=== PATIENT | female | born 1940 | race Caucasian/White ===

== ENCOUNTER 2018-09-10 08:52 | Emergency (ER) | payer MEDICARE ==
--- NOTE | 2018-09-10 09:27 | RAD ---
XR Foot Rt 3 View STANDARD History: [Injury. Fall.] Comparison: None. 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 Old injury to the lateral head of the flexor hallucis brevis that does not change. There is very nonspecific fracture of the third metatarsal base although only seen on the AP radiogra ph. Remainder the foot appears unremarkable. Mild soft tissue swelling. Impression: Concern for nondisplaced fracture of the third metatarsal base. Recommend correlation wit h focal tenderness.
[2018-09-10] MEDS ORDERED: Bacitracin Zinc 1 Packet ONE (09:36)
== END 2018-09-10 09:49 | disposition home or self-care (01) ==
LOC: SCSER 08:52
DX: S93.601A Unspecified sprain of right foot, initial encounter (principal); X50.1XXA Overexertion from prolonged static or awkward postures, initial encounter

== ENCOUNTER 2019-01-19 09:21 | Outpatient (CLI) | payer MEDICARE ==
--- NOTE | 2019-01-19 11:08 | CT ---
CT CERVICAL SPINE: INDICATIONS: Cervical radiculopathy. TECHNIQUE: Axial tomograms obtained with multiplanar reconstructions. FINDINGS: The cervical vertebrae maintain height. Degenerative changes are seen throughout the cervical spine. Loss of disk space is most pronounced at the C4-C5, C5-C6 and C6-C7 levels. Anterolisthesis at C3-C4 measures approximately 3 mm. Posterior spondylosis and anterior spurring are seen at all levels. At C3-C4, mild disk bulge and spondylosis efface the anterior subarachnoid space. Mild left foraminal encroachment due to hypertrophic change. At C4-C5, posterior spondylosis effaces the anterior subarachnoid space. No significant cord impingem ent. Left foraminal narrowing due to facet and uncinate hypertrophy. At C5-C6, posterior spondylosis abuts the anterior cord. Bilateral foraminal narrowing due to facet a nd uncinate hypertrophy. At C6-C7, there is slight anterolisthesis measured at 3 mm. Posterior spondylosis is most pronounced centrally, abutting the anterior cord. No significant foraminal stenosis. IMPRESSION: 1. Degenerative changes of the cervical spine as described above. 2. Loss of disk space is prominent below C4 as noted above. 3. Posterior spondylosis seen as described above. 4. Incidentally noted is a mildly enlarged lobular thyroid with evidence of small internal nodules. C onsider dedicated thyroid ultrasound. POS: [facility]
--- NOTE | 2019-01-19 11:15 | RAD ---
3 VIEWS CERVICAL SPINE: Date: 01/19/19 HISTORY: Cervical radiculopathy, pain. FINDINGS: Multilevel disc space narrowing and degenerative end plate change present at C4-5, C5-6, and C6-7. Th ere is mild anterior osteophyte formation at C4-5, C5-6, and C6-7. On the neutral lateral exam, there is mild anterolisthesis at the C7-T1 level measuring approximately 2.0 mm. Upon flexion, anterolisthesis is noted at C3-4 measuring approximately 4.0 mm, and at C7-T1 measuring approximately 3.0 mm. There is no anterolisthesis or retrolisthesis seen on the extension v iews. IMPRESSION: Multilevel mid cervical spine degenerative change as detailed above. POS: [facility]
== END 2019-01-19 09:22 | disposition home or self-care (01) ==
LOC: SCSCT 09:21
PROVIDERS: ATTEND Nurse Practitioner Family
DX: M47.22 Other spondylosis with radiculopathy, cervical region (principal); E04.2 Nontoxic multinodular goiter
CPT/HCPCS: 72040; 72125

== ENCOUNTER 2020-07-19 12:04 | Inpatient (IN) | payer MEDICARE ==
[2020-07-19] MEDS ORDERED: Ondansetron ODT 4 MG TAB ONE (12:40)
[2020-07-19] MEDS ORDERED: Boostrix 0.5 ML (Tdap) VIAL ONE (12:47)
[2020-07-19] MEDS ORDERED: Lidocaine 1% PF 5 ML VIAL ONE (13:07)
[2020-07-19 14:40] LABS: #Basophils 0.1 thou/uL (0.0-0.2); #Eosinphils 0.5 thou/uL (0.0-0.7); #Lymphocytes 1.6 thou/uL (1.20-3.40); #Monocytes 0.8 thou/uL (0.11-0.59); #Neutrophils 6.3 thou/uL (1.40-6.50); %Eosinophils 5.8 % (0.0-10.0); %Lymphocytes 17.1 % (21.0-51.0); %Monocytes 8.9 % (0.0-10.0); %Neutrophils 67.3 % (42.0-75.0); Mean Corpuscular HGB CONC 32.6 g/dL (32.0-36.0); Mean Corpuscular Volume 91.9 fL (78.0-98.0); Mean Platelet Volume 10.4 fL (7.4-10.4); Platelet Count 149 thou/uL (130-400); RBC Distribution Width 13.1 % (11.5-14.5); Red Blood Cell (RBC) Count 4.33 mill/uL (4.20-5.40); White Blood Cell (WBC) Count 9.4 thou/uL (4.8-10.8)
[2020-07-19 15:01] LABS: ALT (SGPT) 11 U/L (8-55); AST (SGOT) 21 U/L (5-34); Albumin 3.8 g/dL (3.4-4.8); Alkaline Phosphatase 104 U/L (40-110); Anion Gap 15 mmol/L (10-20); BUN (Urea Nitrogen) 20 mg/dL (9.8-20.1); Bilirubin, Total 0.5 mg/dL (0.2-1.2); Calc. Creatinine Clearance 0 mL/min (70-130); Calcium 9.7 mg/dL (7.8-10.44); Carbon Dioxide 26 mmol/L (23-31); Chloride 94 mmol/L (98-107); Globulin 2.7 g/dL (2.4-3.5); Glucose 104 mg/dL (83-110); Potassium 5.1 mmol/L (3.5-5.1); Protein, Total 6.5 g/dL (5.8-8.1); Sodium 130 mmol/L (136-145)
[2020-07-19 17:10] LABS: Troponin I Less than 0.010 ng/mL (< 0.028)
[2020-07-19] MEDS ORDERED: Cyclobenzaprine 10 MG TAB PO PRN (18:09)
[2020-07-19] MEDS ORDERED: Ondansetron PF 4 MG/2 ML Vial IVP PRN (18:19)
[2020-07-19] MEDS ORDERED: Acetaminophen 325 MG TAB ONE (19:31)
[2020-07-19] MEDS: Sodium Chloride 0.9% 1,000 ML IV SCH (20:27)
[2020-07-19] MEDS: Gabapentin 300 MG CAP PO SCH (20:27)
[2020-07-19 20:32] LABS: Troponin I Less than 0.010 ng/mL (< 0.028)
[2020-07-19 22:29] VITALS: BMI 25.5
[2020-07-20] MEDS: traMADol HCl 50 MG TAB PO PRN ×2 (00:38→12:22)
[2020-07-20] MEDS: tiZANidine HCl 4 MG TAB PO PRN ×2 (00:38→20:01)
[2020-07-20 04:43] LABS: #Basophils 0.1 thou/uL (0.0-0.2); #Eosinphils 0.6 thou/uL (0.0-0.7); #Lymphocytes 1.6 thou/uL (1.20-3.40); #Monocytes 0.8 thou/uL (0.11-0.59); %Basophils 1.5 % (0.0-1.0); %Eosinophils 8.2 % (0.0-10.0); %Lymphocytes 22.8 % (21.0-51.0); %Monocytes 11.4 % (0.0-10.0); %Neutrophils 56.1 % (42.0-75.0); Hemoglobin 13.1 g/dL (12.0-16.0); Mean Corpuscular HGB CONC 32.1 g/dL (32.0-36.0); Mean Corpuscular Hemoglobin 29.7 pg (27.0-31.0); Mean Corpuscular Volume 92.5 fL (78.0-98.0); Mean Platelet Volume 10.2 fL (7.4-10.4); Platelet Count 169 thou/uL (130-400); RBC Distribution Width 12.8 % (11.5-14.5); White Blood Cell (WBC) Count 7.2 thou/uL (4.8-10.8)
[2020-07-20 05:13] LABS: ALT (SGPT) 10 U/L (8-55); AST (SGOT) 17 U/L (5-34); Albumin 3.4 g/dL (3.4-4.8); Alkaline Phosphatase 99 U/L (40-110); Anion Gap 15 mmol/L (10-20); BUN (Urea Nitrogen) 20 mg/dL (9.8-20.1); Bilirubin, Total 0.4 mg/dL (0.2-1.2); Calc. Creatinine Clearance 30 mL/min (70-130); Calcium 9.2 mg/dL (7.8-10.44); Carbon Dioxide 23 mmol/L (23-31); Chloride 99 mmol/L (98-107); Globulin 2.6 g/dL (2.4-3.5); Glucose 109 mg/dL (83-110); Potassium 4.6 mmol/L (3.5-5.1); Sodium 132 mmol/L (136-145)
[2020-07-20 05:34] LABS: SARS-CoV-2 PCR by NAA Not Detected (NotDetected)
[2020-07-20] MEDS: Sodium Chloride 0.9% 1,000 ML IV SCH ×2 (07:51→10:49)
[2020-07-20] MEDS: Gabapentin 300 MG CAP PO SCH ×4 (08:45→20:01)
[2020-07-20] MEDS: Enoxaparin Sodium 40 MG/0.4 ML SYRINGE SC SCH (08:45)
[2020-07-21] MEDS: tiZANidine HCl 4 MG TAB PO PRN ×3 (03:51→14:10)
[2020-07-21] MEDS: Gabapentin 300 MG CAP PO SCH ×2 (08:10→14:08)
[2020-07-21] MEDS: Enoxaparin Sodium 40 MG/0.4 ML SYRINGE SC SCH (08:10)
[2020-07-21 16:14] VITALS: BP 97/49; TEMP 97.4
== END 2020-07-21 16:35 | disposition home or self-care (01) | DRG 309 ==
LOC: ERS 12:04 → 2NO 15:51
PROVIDERS: ADMIT Internal Medicine; ATTEND Internal Medicine
PROC: 0HQ1XZZ Repair Face Skin, External Approach (ICD-10-PCS; principal; 2020-07-19)
DX: R00.1 Bradycardia, unspecified (principal); N17.9 Acute kidney failure, unspecified; E87.1 Hypo-osmolality and hyponatremia; Z20.822 Contact with and (suspected) exposure to COVID-19; Z66 Do not resuscitate; Z23 Encounter for immunization; E86.9 Volume depletion, unspecified; M54.9 Dorsalgia, unspecified; T50.2X5A Adverse effect of carbonic-anhydrase inhibitors, benzothiadiazides and other diuretics, initial encounter; G89.29 Other chronic pain; N18.9 Chronic kidney disease, unspecified; I12.9 Hypertensive chronic kidney disease with stage 1 through stage 4 chronic kidney disease, or unspecified chronic kidney disease; S01.81XA Laceration without foreign body of other part of head, initial encounter; W18.30XA Fall on same level, unspecified, initial encounter; Z88.8 Allergy status to other drugs, medicaments and biological substances; Z79.899 Other long term (current) drug therapy
CPT/HCPCS: 12013; 36415; 70450; 70486; 72125; 80053; 84484; 85025; 87635; 90471; 90715; 93005; 93010; 93306; J1650; Q0162; U0003; U0005

== ENCOUNTER 2021-06-10 10:29 | Outpatient (CLI) | payer MEDICARE | END 2021-06-10 10:30 | disposition home or self-care (01) | LOC: SCSCT 10:29 | PROVIDERS: ATTEND Surgery | DX: S06.5X9D Traumatic subdural hemorrhage with loss of consciousness of unspecified duration, subsequent encounter (principal) | CPT/HCPCS: 70450 ==

== ENCOUNTER 2022-09-19 11:50 | Outpatient (CLI) | payer MEDICARE | END 2022-09-19 11:51 | disposition home or self-care (01) | LOC: BICRAD 11:50 | PROVIDERS: ATTEND Nurse Practitioner Family | DX: M25.552 Pain in left hip (principal) ==